=== PATIENT | male | born 1945 | race Caucasian/White ===

== ENCOUNTER 2018-02-01 17:54 | Inpatient (IN) | payer OTHER ==
[~2018-02-01] VITALS: Ht 172.7 cm; Wt 78.0 kg
--- NOTE | ~2018-02-01 | CATHLAB ---
[facility] [address] [place] [address] INVASIVE PROCEDURE REPORT Name: IRMA BURNETTE Room #: 205-P [facility]#: [id number] Admission: 02/01/18 Attend Phys: Chuck Espino, Discharge: Date of : 43 Date of Service: 02/02/18 1153 Report #: [id number] THIS REPORT FOR: //name// APPROVED REPORT Study performed: 02/02/2018 09:31:59 Patient Details Patient Status: Out-Patient Room #: The patient is a 72 year-old male Event Personnel Malcolm Moreland Direct Care Specialist, Eve Rios, Bruna Dillard RTR, Caity Riggs Wes dye automation operator Performed Left Heart Cath w/or w/o Coronaries [id number] [facility] Indication Non-STEMI (>24 hrs to = 48 hrs), Chest pain Procedure Narrative The Right Groin^ was infiltrated with 1% Lidocaine subcutaneous anesthesia. A PINNACLE 6FR Sheath #[id number] sheath was inserted into the RFA^. Coronary angiography was performed using coronary diagnostic catheters. The right coronary system was accessed and visualized with a JR4 catheter. The left coronary system was accessed and visualized with a JL4 catheter. The left ventricle was accessed and visualized with a PIGTAIL catheter. Left ventricular/Aortic Valve gradient assessed via catheter pullback. Hemostasis was obtained with manual pressure following sheath removal without any complications. The patient tolerated the procedure well and there were no complications associated with the procedure. There was no hematoma. Intraoperative Conscious Sedation Sedation start time: 10.04 Case end Time: 10.29 Versed 2 mg Fluoro Time: 1.31 minutes Dose: DAP 54611.20 cGycm2 346 mGy Contrast Type and Amount: Omnipaque 65 ml Coronary Angiography [facility] [employer] [address] INVASIVE PROCEDURE REPORT Name: IRMA BURNETTE Room #: 205-P [facility] IN ..#: [id number] Admission: 02/01/18 Attend Phys: Chuck Espino, Discharge: Date of : 43 Date of Service: 02/02/18 1153 Report #: [id number] The patient's coronary anatomy is right dominant. Diagnostic Cath Left Main Mild plaquing LAD Long, tubular 50% proximal LAD stenosis with a discreet 85% stenosis at first septal perforating branch. Mild distal LAD plaquing Diagonal 1 Several small diffusely diseased diagonal branches Circumflex Large but non-dominant OM1 75% fairly long, proximal OM1 branch stenosis OM2 65% mid OM2 stenosis OM3 90% distal circumflex stenosis before origin of OM3. OM3 very small, mild plaquing Right Coronary 50-60% proximal RCA stenosis. 75% mid RCA stenosis R PDA Mild plaquing RPLV Occluded proximally Left Ventriculography The left ventricle is normal in size with normal contractility. The left ventricular ejection fraction is estimated to be 55-60%. Left ventricular wall motion abnormalities are present. There is no1+ mitral insufficiency. Hypokinesis involving the base of the inferior wall Hemodynamics The aortic pressure is 164/64 mmHg with a mean of 102 mmHg. The left ventricular pressure is 177/2 mmHg with a mean of mmHg. The left ventricular end diastolic pressure is 20 mmHg. Conclusion 1. Mild left ventricular dysfunction with hypokinesis involving the base of the inferior wall. EF 55-60% 2. Mild left main plaquing 3. Severe multivessel coronary artery disease Recommendations Cardiac Rehabilitation Referral Aggressive Medical Therapy CABG Medications Administered ARB (any) Aspirin (any) [address] [address] INVASIVE PROCEDURE REPORT Name: IRMA BURNETTE Room #: 205-P [facility] IN .R.#: [id number] Admission: 02/01/18 Attend Phys: Chuck Espino, Discharge: Date of : 43 Date of Service: 02/02/18 1153 Report #: [id number] Beta J Luis (any) Statin (any) Contraindicated: allergy <ELECTRONICALLY SIGNED> By: Malcolm Moreland MD, [facility] 02/02/18 1153 115 1153 Malcolm Moreland MD, FACC /INF
--- NOTE | ~2018-02-01 | EKG ---
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 <ELECTRONICALLY SIGNED> By: Tiago Shi MD 02/02/18811 0 0 Tiago Shi MD /EPI
--- NOTE | ~2018-02-01 | 2DMMODE ---
[facility] [address] [place] [address] 2 D/M-MODE ECHOCARDIOGRAM Name: VASILEIRMA Zaire Room #: 205-P [facility] IN ..#: [id number] Admission: 02/01/18 Attend Phys: Chuck Espino, Discharge: Date of : 43 Date of Service: 02/02/18 1040 Report #: [id number] THIS REPORT FOR: //name// APPROVED REPORT Study performed: 02/02/2018 08:02:43 EXAM: Comprehensive 2D, Doppler, and color-flow Echocardiogram Patient Location: Echo lab Room #: [facility] Status: routine BSA: 1.94 HR: 53 bpm BP: 144/59 mmHg Rhythm: NSR/PVCs Other Information Study Quality: Good Indications Diabetes Dyspnea Chemo Chest Pain Hypertension/HDD Echo Enhancing Agent Indication: Rule out Shunt Agent(s) / Amount(s) Used: Agitated Saline 7 cc 2D Dimensions RVDd: 30.18 mm LVEF(%): 88.07 (>50%) IVSd: 12.31 (7-11mm) LVOT Diam: 22.44 (18-24mm) LVDd: 42.06 mm PWd: 12.06 (7-11mm) Ascending Ao: 33.12 (22-36mm) LVDs: 17.77 (25-40mm) Aortic Root: 30.44 mm IVC: 13.00 mm Valera's LVEF: 88.07 % Volumes Left Atrial Volume (Systole) Single Plane 4CH: 47.59 mL Single Plane 2CH: 50.76 mL LA ESV Index: 28.00 mL/m2 Aortic Valve [facility] [address] [place] [address] 2 D/M-MODE ECHOCARDIOGRAM Name: IRMA BURNETTE Room #: 205-P [facility]#: [id number] Admission: 02/01/18 Attend Phys: Chuck Espino, Discharge: Date of : 43 Date of Service: 02/02/18 1040 Report #: [id number] AoV Peak Kevin.: 1.53 m/s AO Peak Gr.: 9.31 mmHg LVOT Max P.98 mmHg LVOT Max V: 1.22 m/s MARK Vmax: 3.17 cm2 Mitral Valve E/A Ratio: 0.8 MV Decel. Time: 255.90 ms MV E Max Kevin.: 0.76 m/s MV A Kevin.: 0.90 m/s MV PHT: 74.21 ms IVRT: 92.27 ms Pulmonary Valve PV Peak Kevin.: 1.38 m/s PV Peak Gr.: 7.60 mmHg Pulmonary Vein P Vein S: 0.54 m/s P Vein A: 0.34 m/s P Vein D: 0.21 m/s P Vein A Dur.: 110.7 msec P Vein S/D Ratio: 2.57 Tricuspid Valve RAP Estimate: 5.00 mmHg Left Ventricle The left ventricle is normal size. Mild concentric left ventricular hypertrophy. Probable small, restictive membranous VSD The left ventricular systolic function is normal. Hypokinesis involving base of inferior wall LVEF is 60-65%. Mild diastolic dysfunction is present (impaired relaxation pattern). Right Ventricle The right ventricle is normal size. The right ventricular systolic function is normal. Atria The left atrium size is normal. No shunting by contrast bubble injection The right atrium size is normal. Aortic Valve The aortic valve is mildly calcified, trileaflet. Trace to mild aortic regurgitation. There is no aortic valvular stenosis. Mitral Valve The mitral valve is normal in structure. Mild to at most moderate mitral regurgitation. No evidence of mitral valve [facility] [address] [place] [address] 2 D/M-MODE ECHOCARDIOGRAM Name: IRMA BURNETTE Room #: 205-P [facility] IN [facility]#: [id number] Admission: 02/01/18 Attend Phys: Chuck Espino, Discharge: Date of : 43 Date of Service: 02/02/18 1040 Report #: [id number] stenosis. Tricuspid Valve The tricuspid valve is normal in structure. Trace tricuspid regurgitation. Unable to assess PA pressure. Pulmonic Valve The pulmonary valve is normal in structure. There is no pulmonic valvular regurgitation. Great Vessels The aortic root is normal in size. The ascending aorta is normal in size. IVC is normal in size and collapses >50% with inspiration. Pericardium There is no pericardial effusion. <Conclusion> The left ventricular systolic function is normal. Hypokinesis involving base of inferior wall LVEF is 60-65%. Mild LVH Probable small, restictive membranous VSD Mild diastolic dysfunction is present (impaired relaxation pattern). The aortic valve is mildly calcified, trileaflet, no stenosis. Trace to mild aortic regurgitation. The mitral valve is normal in structure. Mild to at most moderate mitral regurgitation. Pulmonary artery pressure could not be reliably ascertained There is no pericardial effusion. <ELECTRONICALLY SIGNED> By: Malcolm Moreland MD, FACC 02/02/18 1040 1040 1040 Malcolm Moreland MD, FACC /INF
--- NOTE | ~2018-02-01 | EKG ---
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
--- NOTE | ~2018-02-01 | EKG ---
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1945 Requested By: Arlene Zamora Order Number: [id number] MD: Malcolm Moreland Measurements Intervals [place] Rate: 87 P: 36 [place]: 176 QRS: -39 QRSD: 93 T: 95 QT: 343 QTc: 413 Interpretive Statements Sinus rhythm Left anterior fascicular block Abnormal R-wave progression, early transition Nonspecific T abnormalities, lateral leads Borderline ST elevation, consider pericarditis Compared to ECG 02/03/2018 06:20:56 Early R-wave progression is now present Electronically Signed On 02-07-2018 9:14:45 CDT by Malcolm Moreland [email or web address] <ELECTRONICALLY SIGNED> By: Malcolm Moreland MD, [facility] 02/07/18 0914 Malcolm Moreland MD, [facility] /EPI
--- NOTE | ~2018-02-01 | EKG ---
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1945 Requested By: Arlene Zamora Order Number: [id number] MD: Malcolm Moreland Measurements Intervals [place] Rate: 73 P: 32 [place]: 154 QRS: -14 QRSD: 91 T: 89 QT: 361 QTc: 398 Interpretive Statements Sinus rhythm Atrial premature complexes Nonspecific ST and T wave abnormality Compared to ECG 02/02/2018 06:01:56 No significant changes Electronically Signed On 02-03-2018 17:22:59 CDT by Malcolm Moreland [email or web address] <ELECTRONICALLY SIGNED> By: Malcolm Moreland MD, [facility] 02/03/18 1722 9 9 Malcolm Moreland MD, [facility] /EPI
--- NOTE | ~2018-02-01 | HC ---
[facility] [place] [address] CONSULTATION Name: IRMA BURNETTE Room #: 205-P [facility] IN .R.#: [id number] Admission: 02/01/18 Attend Phys: Chuck Espino MD Discharge: Date of : 43 Report #: [id number] THIS REPORT FOR: //name// CC: Chuck Glass DATE OF SERVICE: 02/01/2018 REASON FOR CONSULTATION: Chest pain. HISTORY OF PRESENT ILLNESS: The patient is a 72-year-old gentleman with history of hypertension and long-standing diabetes. He has a history of dyslipidemia. He has been intolerant to multiple different statin medications. Over the past month, he has had intermittent upper chest tightness. He thought that this was probably related to cervical spine fusion that he had a month ago. Today, however, he had a severe episode of the same chest tightness, radiating to both arms and into his jaw. Pain lasted for about 10-15 minutes. He works nights and went home to go to bed and was awakened by the same pain. Pain occurred throughout the day and he presented to the Emergency Department, where he was severely hypertensive. He was given aspirin and nitroglycerin and his pain resolved. His presenting EKG demonstrated LVH with repolarization abnormality, similar to an EKG in 2010. He is currently pain-free. He denies heart failure symptoms including orthopnea, paroxysmal nocturnal dyspnea or lower extremity edema. No history of palpitations, near syncope or syncope. HE HAS BEEN INTOLERANT TO NUMEROUS DIFFERENT STATIN MEDICINES. He thinks that he has tried them all. MEDICATIONS: Include Cozaar 100 mg daily, glipizide 10 mg twice daily, metformin 1000 mg twice daily and fish oil 4 grams daily. PAST MEDICAL HISTORY: His past history and medical records have been reviewed and include a history of left nephrectomy for benign tumor, C4-C5 fusion, eye surgery following a traumatic injury, several prior herniorrhaphies, hypertension, diabetes for the past 20 years and dyslipidemia. 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 He is a former smoker, he quit 7 years ago. . FAMILY HISTORY: Unremarkable for premature coronary disease. REVIEW OF SYSTEMS: All systems negative, except as that noted above. PHYSICAL EXAMINATION: GENERAL: He is a pleasant gentleman, in no distress. [address] [address] CONSULTATION Name: IRMA BURNETTE Room #: [facility] IN M.R.#: [id number] Admission: 02/01/18 Attend Phys: Chuck Espino MD Discharge: Date of : 43 Report #: [id number] VITAL SIGNS: Blood pressure is 150/69, heart rate is 69 and regular. He is afebrile, 5 feet 8 inches tall, 170 pounds. HEENT: There are neither xanthelasma, subcutaneous xanthomata, oral mucosal or digital cyanosis or kyphoscoliosis present. CHEST: Clear to auscultation and percussion. CARDIAC EXAMINATION: Regular rate and rhythm, with normal S1, S2. No murmurs or rubs. ABDOMEN: Soft and nontender. EXTREMITIES: Without cyanosis, clubbing or edema. Radial pulses are 2+. NEUROLOGIC: He is alert with a nonfocal exam. LABORATORY DATA: Sodium is 138, potassium 3.8, creatinine 1.5 and glucose 208. Troponin 0.41. White count 5.7, hemoglobin 14, hematocrit 42 and platelet count 208,000. Chest x-ray is normal. EKG is detailed above. IMPRESSION: 1. Chest pain consistent with unstable angina versus acute coronary syndrome. 2. Hypertension. 3. Dyslipidemia. 4. Diabetes. 5. Chronic kidney disease; solitary kidney following left nephrectomy. 6. Prior tobacco dependency. RECOMMENDATIONS: 1. Therapy with aspirin, nitrates and beta blockade. 2. Coronary angiography. The angiographic procedure was discussed in detail including its associated risks. After a thorough discussion of the procedure, its risks and alternatives and after answering his questions in detail, he is agreeable to proceeding. Thank you for asking me to participate in the patient's care. <ELECTRONICALLY SIGNED> By: Malcolm Moreland MD, [facility] 02/03/18 1534 34 29 Malcolm Moreland MD, FAC /nt
--- NOTE | ~2018-02-01 | EKG ---
[address] [address] ELECTROCARDIOGRAM REPORT Name: VASILEIRMA Tai Room #: 247-P ADM IN M.R.#: [id number] Admission: 02/01/18 Attend Phys: Chuck Espino MD Discharge: Date of : 43 Report #: [id number] THIS REPORT FOR: //name// [facility] Test Date: 2018-02-06 Test Time: 17:43:25 Pat Name: IRMA BURNETTE Department: Room: 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: jlambjesusita : 1945 Requested By: Arlene Zamora Order Number: [id number] MD: Malcolm Moreland Measurements Intervals [place] Rate: 66 P: 13 [place]: 184 QRS: -47 QRSD: 99 T: 75 QT: 390 QTc: 409 Interpretive Statements Sinus rhythm Leftward axis ST elevation, consider postoperative pericarditis Compared to ECG 02/03/2018 06:20:56 Atrial premature complex(es) no longer present repolarization abnormality is now present Electronically Signed On 02-07-2018 9:08:19 CDT by Malcolm Moreland [email or web address] <ELECTRONICALLY SIGNED> By: Malcolm Moreland MD, [facility] 02/07/18 0908 1743 1743 Malcolm Moreland MD, [facility] /EPI
--- NOTE | ~2018-02-01 | O ---
[facility] [place] [address] OPERATIVE REPORT Name: IRMA BURNETTE Room #: 247-P ADM IN M.R.#: [id number] Admission: 02/01/18 Attend Phys: Chuck Espino MD Discharge: Date of : 43 Report #: [id number] THIS REPORT FOR: //name// CC: ALVAREZ Glass DATE OF SERVICE: 02/06/2018 PREOPERATIVE DIAGNOSES: 1. Coronary artery disease. 2. Non-ST segment elevation myocardial infarction. FINAL DIAGNOSES: 1. Coronary artery disease. 2. Non-ST segment elevation myocardial infarction. OPERATIVE PROCEDURE PERFORMED: Coronary artery bypass grafting x 5 with left internal mammary artery to the LAD, a left internal mammary artery Y graft to diagonal vessel, saphenous vein graft to PDA, and saphenous vein graft sequence to OM1 and OM2. SURGEON: Olivier Rosenthal MD ASSISTANTS: FELIPE Pratt and FELIPE Trejo ANESTHESIA: General. OPERATIVE INDICATIONS: The patient is a 72-year-old male who has presented to the hospital with evidence of non-ST segment elevation GA. Maximum troponin was 7. His evaluation included echocardiography and left heart catheterization demonstrated important multivessel coronary artery disease in this diabetic, hypertensive and hyperlipidemic individual. The patient had a stable post-GA course. He was brought to the operating room now for coronary bypass grafting. OPERATIVE SUMMARY: The patient was brought to the operating room, placed on the OR table in supine position. After anesthesia was induced via the general endotracheal route, monitoring lines have been positioned, the patient was prepped and draped in sterile fashion with chlorhexidine. A median sternotomy incision was made and the left internal mammary artery was harvested in standard fashion. Concomitantly, saphenous vein was harvested from left lower extremity using endoscopic techniques. I opened the pericardium, systemically anticoagulated the patient with heparin. Cannulae were placed in ascending aorta and the right atrium. Antegrade cardioplegic cannula was positioned and after cardiopulmonary bypass was begun, under low flow conditions, the aorta was cross clamped. The heart was arrested with approximately 1 liter of cold [facility] [address] [place] [address] OPERATIVE REPORT Name: IRMA BURNETTE Room #: 247-P [facility] IN ..#: [id number] Admission: 02/01/18 Attend Phys: Chuck Espino MD Discharge: Date of : 43 Report #: [id number] antegrade cardioplegia, followed by 500 mL cold retrograde cardioplegia. This was augmented with topical ice slush. Diastolic arrest was achieved and maintained throughout this operation with intermittent doses of cold antegrade and retrograde cardioplegia as well as cardioplegia given down grafts and topical ice slush. We first opened up the second obtuse marginal vessel which was about a 1.9 mm vessel. Distal anastomosis was carried out in end-to-side fashion with 7-0 Prolene. We then constructed a [id number] anastomosis to the first obtuse marginal vessel. This vessel was submuscular and significant dissection was required. Next, a proximal anastomosis was fashioned to the ascending aorta with 6-0 Prolene after 4.8 punch aortotomy was created. Next, we opened up the PDA about a 1.8 mm vessel. Distal anastomosis was carried out in end-to-side fashion with 7-0 Prolene utilizing reverse saphenous vein graft. The vein graft was brought around to the ascending aorta in a proximal fashion with 6-0 Prolene after 4.8 punch aortotomy was created. Next, the left internal mammary artery was brought onto the field. The mammary artery was of good size and had good flow. We first dissected the left internal mammary artery, found a soft spot. It was intramyocardial as well. The diagonal vessel appeared to be large enough for grafting. We opened the diagonal vessel first. It was about 1.5 mm in size. Distal anastomosis was carried out in end-to-side fashion with 7-0 Prolene utilizing the left internal mammary artery. We then cut the internal mammary artery about 2 cm back. We reprepared the in situ mammary for anastomosis to the LAD and performed this anastomosis with 7-0 Prolene after arteriotomy was made. Next, the pedicle was tacked to the epicardium with 6-0 Prolene. Lastly anastomosis between the AMANDA segment to the diagonal and the in situ AMANDA segment was performed utilizing 7-0 Prolene in an end-to-side fashion. Once this was completed, warm cardioplegia was given both retrograde and antegrade. Care was taken to deair the ascending aorta and under low flow conditions aortic crossclamp was released to begin the period of reperfusion. The patient was rewarmed to 37 degree centigrade, 3 successive doses of calcium and single dose of magnesium were given over 3-5 minute intervals. Atrial and ventricular pacing wires were placed. The patient was initially AV sequentially paced. After a suitable period of reperfusion, the lungs were reinflated. The patient was weaned from cardiopulmonary bypass without inotropic support. Protamine was given to reverse the heparin, decannulation was effected. Once satisfactory hemostasis was achieved, we placed two 32-Thai chest tube in anterior mediastinum and 24 Deepak drain in left pleural space. They were all brought through separate stab incisions. The sternum was closed with #7 wire. The fascia, subcutaneous and skin were closed in multiple layers with absorbable suture. The procedure completed. The patient was taken to the ICU in [facility] [address] [place] [address] OPERATIVE REPORT Name: IRMA BURNETTE Room #: 247-P [facility] IN ..#: [id number] Admission: 02/01/18 Attend Phys: Chuck Espino MD Discharge: Date of : 43 Report #: [id number] condition. Cardiopulmonary bypass time 174 minutes. Cross clamp time 153 minutes. By: 1620 1821 /nt
--- NOTE | ~2018-02-01 | EKG ---
[address] [address] ELECTROCARDIOGRAM REPORT Name: VASILEIRMA Zaire Room #: 205-P ADM IN M.R.#: [id number] Admission: 02/01/18 Attend Phys: Chuck Espino MD Discharge: Date of : 43 Report #: [id number] THIS REPORT FOR: //name// 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
[~2018-02-01 17:54] MED LIST: ASPIRIN; COZAAR; FISH OIL 1,0001 EAC6; GLUCOTROL5 MG; METFORMIN; MULTIVITAMINS; TRAMADOL 50 MG50 MG PO
[2018-02-01 18:00] VITALS: BP 225/115
[2018-02-01 18:16] LABS: HEMATOCRIT 42.3 % (42.0-52.0); HEMOGLOBIN 14.7 gm/dL (14.0-18.0); MCH 31.8 pg (26.0-34.0); MCHC 34.8 g/dL (28.0-37.0); MCV 91.3 fL (80.0-100.0); RBC 4.63 mil/uL (4.50-6.00); RDW 13.2 % (10.5-14.5); WBC 5.7 thou/uL (4.0-11.0)
[2018-02-01] MEDS ORDERED: GLIPIZIDE 10 MG10 MG PO (18:17)
[2018-02-01] MEDS ORDERED: COZAAR 50 MG TA50 M2 PO (18:18)
[2018-02-01] MEDS ORDERED: METFORMIN HCL500 MG PO (18:18)
[2018-02-01 18:25] LABS: CALCIUM 10.1 mg/dL (8.5-10.1); CREATININE 1.5 mg/dL (0.7-1.3); POTASSIUM 3.8 mmol/L (3.5-5.1)
[2018-02-01 18:34] LABS: ALBUMIN 4.3 g/dL (3.4-5.0); TOTAL BILIRUBIN 0.3 mg/dL (<0.1-1.0); TROPONIN-I 0.41 ng/mL (<0.06)
[2018-02-01 19:33] VITALS: BP 106/54
[2018-02-01 19:53] VITALS: BP 152/69
[2018-02-01 20:48] LABS: CHOLESTEROL 216 mg/dL (<200); HDL CHOLESTEROL 36 mg/dL (>40); LDL CHOLESTEROL 113 mg/dL (<100); TRIGLYCERIDE 336 mg/dL (<150); VLDL 67 mg/dL (<40)
[2018-02-01 20:50] LABS: SERUM ASSESSMENT Clear
[2018-02-01 20:54] VITALS: BP 153/80
[2018-02-01 23:19] VITALS: BP 146/59
[2018-02-02] VITALS (14 sets, daily range): BP systolic 133–175; BP diastolic 57–93
[2018-02-02 14:10] LABS: GLYCOHEMOGLOBIN (HGB A1C) 7.9 % (4.8-5.6)
[2018-02-02 16:35] LABS: URINE BILIRUBIN NEGATIVE (Negative); URINE BLOOD NEGATIVE (Negative); URINE CLARITY CLEAR; URINE COLOR YELLOW; URINE GLUCOSE-RANDOM* NEGATIVE (Negative); URINE KETONES NEGATIVE (Negative); URINE LEUKOCYTES-REFLEX NEGATIVE (Negative); URINE NITRITE-REFLEX NEGATIVE (Negative); URINE PROTEIN (DIPSTICK) NEGATIVE (Negative); URINE SPECIFIC GRAVITY <= 1.005 (1.005-1.035); URINE UROBILINOGEN 0.2 E.U./dl (0.2-1.0)
[2018-02-03 03:26] VITALS: BP 127/52
[2018-02-03 04:49] LABS: APTT 28.2 Seconds (24.5-32.8); PROTIME 10.2 Seconds (9.3-11.4)
[2018-02-03 04:53] LABS: CALCIUM 9.2 mg/dL (8.5-10.1); CREATININE 1.4 mg/dL (0.7-1.3); POTASSIUM 3.8 mmol/L (3.5-5.1)
[2018-02-03 08:00] VITALS: BP 131/71
[2018-02-03 13:29] VITALS: BP 143/68
[2018-02-03 15:20] VITALS: BP 128/66
[2018-02-03 19:31] VITALS: BP 138/73
[2018-02-04 04:40] VITALS: BP 133/69
[2018-02-04 04:55] LABS: CALCIUM 9.3 mg/dL (8.5-10.1); CREATININE 1.5 mg/dL (0.7-1.3); POTASSIUM 3.9 mmol/L (3.5-5.1)
[2018-02-04 08:34] VITALS: BP 139/70
[2018-02-04 11:13] VITALS: BP 129/65
[2018-02-04 15:27] VITALS: BP 126/67
[2018-02-04 19:20] VITALS: BP 131/69
[2018-02-04 19:21] VITALS: BP 125/81
[2018-02-05] VITALS (7 sets, daily range): BP systolic 113–149; BP diastolic 69–86
[2018-02-06 04:24] VITALS: BP 115/67
[2018-02-06 05:14] LABS: ALBUMIN 3.3 g/dL (3.4-5.0); CALCIUM 9.5 mg/dL (8.5-10.1); CREATININE 1.7 mg/dL (0.7-1.3); MAGNESIUM 1.7 mg/dL (1.8-2.4); POTASSIUM 4.2 mmol/L (3.5-5.1); TOTAL BILIRUBIN 0.5 mg/dL (<0.1-1.0); TOTAL PROTEIN 6.7 g/dL (6.4-8.2)
[2018-02-06 05:19] LABS: HEMATOCRIT 35.8 % (42.0-52.0); HEMOGLOBIN 12.4 gm/dL (14.0-18.0); MCH 31.7 pg (26.0-34.0); MCHC 34.6 g/dL (28.0-37.0); MCV 91.7 fL (80.0-100.0); RBC 3.91 mil/uL (4.50-6.00); RDW 12.9 % (10.5-14.5); WBC 6.6 thou/uL (4.0-11.0)
[2018-02-06 07:35] VITALS: BP 140/74
[2018-02-06 15:34] LABS: MCHC 34.8 g/dL (28.0-37.0); MCV 92.1 fL (80.0-100.0); RBC 2.48 mil/uL (4.50-6.00); RDW 12.5 % (10.5-14.5)
[2018-02-06 15:37] LABS: HEMATOCRIT 22.8 % (42.0-52.0)
[2018-02-06 15:38] LABS: HEMOGLOBIN 7.9 gm/dL (14.0-18.0)
[2018-02-06 15:52] LABS: INR 1.4
[2018-02-06 15:53] LABS: FIBRINOGEN 160.9 mg/dL (210-360)
[2018-02-06 16:22] LABS: POC BE -3 mmol/L (-2.0 to +3.0); POC CA IONIZED 7.8 mg/dL (4.5-5.3); POC GLUCOSE 147 mg/dL (70-99); POC HCO3 22.5 mmol/L (22.0-26.0); POC HEMOGLOBIN 6.8 g/dL (14.0-18.0); POC POTASSIUM 4.1 mmol/L (3.5-5.1); POC SODIUM 138 mmol/L (136-145); POC pCO2 40.5 mmHg (35.0-45.0); POC pH 7.353 (7.360-7.450)
[2018-02-06 16:22] LABS: POC BE 2 mmol/L (-2.0 to +3.0); POC GLUCOSE 109 mg/dL (70-99); POC HCO3 26.9 mmol/L (22.0-26.0); POC HEMOGLOBIN 8.5 g/dL (14.0-18.0); POC POTASSIUM 4.8 mmol/L (3.5-5.1); POC SODIUM 137 mmol/L (136-145); POC pCO2 44.1 mmHg (35.0-45.0); POC pH 7.393 (7.360-7.450)
[2018-02-06 16:22] LABS: POC BE 2 mmol/L (-2.0 to +3.0); POC CA IONIZED 4.2 mg/dL (4.5-5.3); POC GLUCOSE 101 mg/dL (70-99); POC HCO3 24.7 mmol/L (22.0-26.0); POC HEMOGLOBIN 8.5 g/dL (14.0-18.0); POC POTASSIUM 4.9 mmol/L (3.5-5.1); POC SODIUM 139 mmol/L (136-145); POC pCO2 31.4 mmHg (35.0-45.0); POC pH 7.505 (7.360-7.450)
[2018-02-06 16:22] LABS: POC BE 0 mmol/L (-2.0 to +3.0); POC GLUCOSE 158 mg/dL (70-99); POC HCO3 25.6 mmol/L (22.0-26.0); POC HEMOGLOBIN 6.8 g/dL (14.0-18.0); POC POTASSIUM 4.9 mmol/L (3.5-5.1); POC SODIUM 137 mmol/L (136-145); POC pCO2 45.1 mmHg (35.0-45.0); POC pH 7.361 (7.360-7.450)
[2018-02-06 16:22] LABS: POC BE -2 mmol/L (-2.0 to +3.0); POC CA IONIZED 4.8 mg/dL (4.5-5.3); POC GLUCOSE 141 mg/dL (70-99); POC HCO3 24.5 mmol/L (22.0-26.0); POC HEMOGLOBIN 10.2 g/dL (14.0-18.0); POC POTASSIUM 4.3 mmol/L (3.5-5.1); POC SODIUM 138 mmol/L (136-145); POC pCO2 50.2 mmHg (35.0-45.0); POC pH 7.296 (7.360-7.450)
[2018-02-06 16:22] LABS: POC BE 0 mmol/L (-2.0 to +3.0); POC CA IONIZED 4.4 mg/dL (4.5-5.3); POC GLUCOSE 143 mg/dL (70-99); POC HCO3 24.6 mmol/L (22.0-26.0); POC HEMOGLOBIN 8.2 g/dL (14.0-18.0); POC POTASSIUM 4.6 mmol/L (3.5-5.1); POC SODIUM 140 mmol/L (136-145); POC pCO2 39.2 mmHg (35.0-45.0); POC pH 7.406 (7.360-7.450)
[2018-02-06 16:22] LABS: POC BE 0 mmol/L (-2.0 to +3.0); POC CA IONIZED 4.5 mg/dL (4.5-5.3); POC GLUCOSE 173 mg/dL (70-99); POC HCO3 25.1 mmol/L (22.0-26.0); POC HEMOGLOBIN 7.8 g/dL (14.0-18.0); POC SODIUM 140 mmol/L (136-145); POC pCO2 43.7 mmHg (35.0-45.0); POC pH 7.368 (7.360-7.450)
[2018-02-06 16:22] LABS: POC BE 0 mmol/L (-2.0 to +3.0); POC CA IONIZED 4.6 mg/dL (4.5-5.3); POC GLUCOSE 175 mg/dL (70-99); POC HCO3 24.5 mmol/L (22.0-26.0); POC HEMOGLOBIN 10.5 g/dL (14.0-18.0); POC POTASSIUM 4.6 mmol/L (3.5-5.1); POC SODIUM 138 mmol/L (136-145); POC pCO2 35.5 mmHg (35.0-45.0); POC pH 7.447 (7.360-7.450)
[2018-02-06 16:22] LABS: POC BE 2 mmol/L (-2.0 to +3.0); POC CA IONIZED 4.3 mg/dL (4.5-5.3); POC GLUCOSE 119 mg/dL (70-99); POC HCO3 25.9 mmol/L (22.0-26.0); POC HEMOGLOBIN 8.2 g/dL (14.0-18.0); POC POTASSIUM 4.9 mmol/L (3.5-5.1); POC SODIUM 140 mmol/L (136-145); POC pCO2 36.9 mmHg (35.0-45.0); POC pH 7.455 (7.360-7.450)
[2018-02-06 16:22] LABS: POC BE -5 mmol/L (-2.0 to +3.0); POC CA IONIZED 6.7 mg/dL (4.5-5.3); POC GLUCOSE 121 mg/dL (70-99); POC HCO3 20.8 mmol/L (22.0-26.0); POC HEMOGLOBIN 8.8 g/dL (14.0-18.0); POC POTASSIUM 4.3 mmol/L (3.5-5.1); POC SODIUM 140 mmol/L (136-145); POC pCO2 36.9 mmHg (35.0-45.0); POC pH 7.359 (7.360-7.450)
[2018-02-06 16:22] LABS: POC BE -3 mmol/L (-2.0 to +3.0); POC CA IONIZED 4.3 mg/dL (4.5-5.3); POC GLUCOSE 107 mg/dL (70-99); POC HCO3 23.3 mmol/L (22.0-26.0); POC HEMOGLOBIN 8.8 g/dL (14.0-18.0); POC POTASSIUM 4.7 mmol/L (3.5-5.1); POC SODIUM 139 mmol/L (136-145); POC pCO2 43.6 mmHg (35.0-45.0); POC pH 7.336 (7.360-7.450)
[2018-02-06 16:50] LABS: HEMATOCRIT 30.7 % (42.0-52.0); MCH 31.6 pg (26.0-34.0); MCHC 34.5 g/dL (28.0-37.0); MCV 91.8 fL (80.0-100.0); RBC 3.34 mil/uL (4.50-6.00); RDW 12.7 % (10.5-14.5); WBC 11.5 thou/uL (4.0-11.0)
[2018-02-06 16:50] LABS: BE(vivo) -5.3 mmol/L (-2 to +3); HCO3 20.7 mmol/L (22.0-26.0); PCO2 41.9 mmHg (35.0-45.0); PO2 88.9 mmHg (80.0-100.0); sO2 96.1 % (92.0-98.0)
[2018-02-06 16:51] LABS: pH 7.311 (7.360-7.450)
[2018-02-06 16:54] LABS: HEMOGLOBIN 10.6 gm/dL (14.0-18.0)
[2018-02-06 16:59] LABS: CALCIUM 11.1 mg/dL (8.5-10.1); CREATININE 1.5 mg/dL (0.7-1.3); POTASSIUM 4.4 mmol/L (3.5-5.1)
[2018-02-06 17:00] LABS: MAGNESIUM 2.9 mg/dL (1.8-2.4)
[2018-02-06 17:04] LABS: APTT 26.8 Seconds (24.5-32.8); INR 1.2; PROTIME 11.8 Seconds (9.3-11.4)
[2018-02-06 20:40] LABS: HEMATOCRIT 31.7 % (42.0-52.0)
[2018-02-06 23:32] LABS: BE(vivo) -3.9 mmol/L (-2 to +3); HCO3 21.4 mmol/L (22.0-26.0); PO2 87.8 mmHg (80.0-100.0); pH 7.347 (7.360-7.450); sO2 96.3 % (92.0-98.0)
[2018-02-07] VITALS (15 sets, daily range): BP systolic 102–137; BP diastolic 50–73
[2018-02-07 00:18] LABS: HCO3 18.6 mmol/L (22.0-26.0); PCO2 37.9 mmHg (35.0-45.0); PO2 94.6 mmHg (80.0-100.0); sO2 96.7 % (92.0-98.0)
[2018-02-07 00:19] LABS: pH 7.309 (7.360-7.450)
[2018-02-07 05:45] LABS: HEMATOCRIT 29.5 % (42.0-52.0); HEMOGLOBIN 10.2 gm/dL (14.0-18.0); MCH 31.9 pg (26.0-34.0); MCHC 34.6 g/dL (28.0-37.0); MCV 92.2 fL (80.0-100.0); RBC 3.2 mil/uL (4.50-6.00); WBC 9.4 thou/uL (4.0-11.0)
[2018-02-07 06:40] LABS: CALCIUM 9.8 mg/dL (8.5-10.1); CREATININE 1.7 mg/dL (0.7-1.3); MAGNESIUM 2.1 mg/dL (1.8-2.4); POTASSIUM 4.7 mmol/L (3.5-5.1)
[2018-02-07 10:34] LABS: URINE BILIRUBIN NEGATIVE (Negative); URINE BLOOD 3+ (Negative); URINE CLARITY CLOUDY; URINE COLOR YELLOW; URINE GLUCOSE-RANDOM* NEGATIVE (Negative); URINE KETONES 1+ (Negative); URINE LEUKOCYTES NEGATIVE (Negative); URINE NITRITE NEGATIVE (Negative); URINE PROTEIN (DIPSTICK) TRACE (Negative); URINE SPECIFIC GRAVITY >= 1.030 (1.005-1.035); URINE UROBILINOGEN 0.2 E.U./dl (0.2-1.0)
[2018-02-07 10:47] LABS: AMORPHOUS URATES Moderate /LPF (None Seen); CASTS None Seen /LPF (None Seen); SQUAMOUS None Seen /LPF (0-3); URINE WBC 0-5 Rare /HPF (0-5)
[2018-02-07 10:48] LABS: BACTERIA 1-9 Few /HPF (None Seen)
[2018-02-08] VITALS (17 sets, daily range): BP systolic 106–140; BP diastolic 52–114
[2018-02-08 04:42] LABS: ABSOLUTE NEUTROPHILS 7.1 thou/uL (1.4-8.2); BASOPHILS 0.3 % (0.0-2.0); EOSINOPHILS 0.6 % (0.0-3.0); HEMOGLOBIN 9.6 gm/dL (14.0-18.0); LYMPHOCYTES 9.1 % (24.0-44.0); MCH 31.8 pg (26.0-34.0); MCHC 34.4 g/dL (28.0-37.0); MCV 92.5 fL (80.0-100.0); MONOCYTES 8.6 % (1.0-8.0); PLATELET COUNT 142 thou/uL (150-400); POLYS 81.4 % (36.0-66.0); RBC 3.03 mil/uL (4.50-6.00); RDW 13.1 % (10.5-14.5); WBC 8.7 thou/uL (4.0-11.0)
[2018-02-08 04:59] LABS: CALCIUM 9.5 mg/dL (8.5-10.1); CREATININE 1.6 mg/dL (0.7-1.3); MAGNESIUM 1.7 mg/dL (1.8-2.4); POTASSIUM 4.6 mmol/L (3.5-5.1); TOTAL BILIRUBIN 0.7 mg/dL (<0.1-1.0)
[2018-02-09 00:17] VITALS: BP 122/83
[2018-02-09 04:34] LABS: CALCIUM 9.3 mg/dL (8.5-10.1); CREATININE 1.6 mg/dL (0.7-1.3); MAGNESIUM 1.9 mg/dL (1.8-2.4); POTASSIUM 4.4 mmol/L (3.5-5.1)
[2018-02-09 04:35] LABS: HEMATOCRIT 27.1 % (42.0-52.0); HEMOGLOBIN 9.4 gm/dL (14.0-18.0); MCH 32.1 pg (26.0-34.0); MCHC 34.7 g/dL (28.0-37.0); MCV 92.4 fL (80.0-100.0); RBC 2.93 mil/uL (4.50-6.00); RDW 13.1 % (10.5-14.5); WBC 7.8 thou/uL (4.0-11.0)
[2018-02-09 05:18] VITALS: BP 149/82
[2018-02-09 08:18] VITALS: BP 142/58
[2018-02-09 17:28] VITALS: BP 133/62
[2018-02-09 19:53] VITALS: BP 115/53
[2018-02-10 04:33] VITALS: BP 142/77
[2018-02-10 07:14] VITALS: BP 147/76
[2018-02-10 11:03] VITALS: BP 136/73
[2018-02-10 14:55] VITALS: BP 136/73
[2018-02-10 15:54] VITALS: BP 119/51
[2018-02-10 19:55] VITALS: BP 141/64
[2018-02-11 04:36] VITALS: BP 161/74
[2018-02-11 06:51] LABS: HEMATOCRIT 31.7 % (42.0-52.0); HEMOGLOBIN 10.9 gm/dL (14.0-18.0); MCH 31.6 pg (26.0-34.0); MCHC 34.3 g/dL (28.0-37.0); MCV 92.3 fL (80.0-100.0); RBC 3.43 mil/uL (4.50-6.00); RDW 13.2 % (10.5-14.5)
[2018-02-11 07:08] LABS: CREATININE 1.6 mg/dL (0.7-1.3); MAGNESIUM 1.7 mg/dL (1.8-2.4); POTASSIUM 3.7 mmol/L (3.5-5.1)
[2018-02-11 09:03] VITALS: BP 154/69
[2018-02-11 12:35] VITALS: BP 122/57
[2018-02-11 17:06] VITALS: BP 128/53
[2018-02-11 19:16] VITALS: BP 124/60
[2018-02-12 03:55] VITALS: BP 142/72
[2018-02-12 07:28] LABS: HEMATOCRIT 28.3 % (42.0-52.0); HEMOGLOBIN 9.7 gm/dL (14.0-18.0); MCH 31.4 pg (26.0-34.0); MCHC 34.2 g/dL (28.0-37.0); MCV 91.9 fL (80.0-100.0); RBC 3.08 mil/uL (4.50-6.00); WBC 8.8 thou/uL (4.0-11.0)
[2018-02-12 07:39] LABS: CALCIUM 8.7 mg/dL (8.5-10.1); CREATININE 1.5 mg/dL (0.7-1.3); MAGNESIUM 1.7 mg/dL (1.8-2.4); POTASSIUM 3.7 mmol/L (3.5-5.1)
[2018-02-12 07:52] VITALS: BP 148/74
[2018-02-12 11:09] VITALS: BP 122/67
[2018-02-12 15:30] VITALS: BP 143/71
[2018-02-12 20:08] VITALS: BP 125/68
[2018-02-13 03:49] LABS: CALCIUM 9.1 mg/dL (8.5-10.1); CREATININE 1.6 mg/dL (0.7-1.3); MAGNESIUM 1.9 mg/dL (1.8-2.4); POTASSIUM 3.7 mmol/L (3.5-5.1)
[2018-02-13 04:05] LABS: HEMATOCRIT 28.7 % (42.0-52.0); HEMOGLOBIN 9.8 gm/dL (14.0-18.0); MCH 31.3 pg (26.0-34.0); MCHC 34.2 g/dL (28.0-37.0); MCV 91.3 fL (80.0-100.0); RBC 3.14 mil/uL (4.50-6.00); RDW 12.8 % (10.5-14.5); WBC 9.2 thou/uL (4.0-11.0)
[2018-02-13 05:11] VITALS: BP 138/80
[2018-02-13 08:14] VITALS: BP 138/72
[2018-02-13 11:30] VITALS: BP 118/70
[2018-02-13] MEDS ORDERED: HYDROCODON-ACE1 EAC7 PO (11:44)
[2018-02-13] MEDS ORDERED: PACERONE 200 M200 M1 PO (11:44)
[2018-02-13] MEDS ORDERED: ASA5UEC PO (11:44)
[2018-02-13] MEDS ORDERED: JANUVIA25 MG PO (11:44)
[2018-02-13] MEDS ORDERED: LIPITOR 20 MG T20 M1 PO (11:46)
[2018-02-13] MEDS ORDERED: VENTOLIN HFA 1818 GM INH (11:50)
[2018-02-13 13:57] VITALS: BP 136/73
[2018-02-13 15:10] VITALS: BP 136/73
== END 2018-02-13 15:24 | disposition home health service (06) | DRG 233 ==
LOC: ER 17:54 → EROBS 19:30 → 2N 19:30 → TBA 02-06 08:27 → ICU 02-06 16:29 → 2N 02-08 15:51
PROVIDERS: Internal Medicine; Nurse Practitioner; Nurse Practitioner Acute Care; Physician Assistant; Thoracic Surgery (Cardiothoracic Vascular Surgery)
PROC: B2111ZZ Fluoroscopy of Multiple Coronary Arteries using Low Osmolar Contrast (ICD-10-PCS; 2018-02-02)
PROC: 4A023N7 Measurement of Cardiac Sampling and Pressure, Left Heart, Percutaneous Approach (ICD-10-PCS; 2018-02-02)
PROC: B2151ZZ Fluoroscopy of Left Heart using Low Osmolar Contrast (ICD-10-PCS; 2018-02-02)
PROC: 4A133B1 Monitoring of Arterial Pressure, Peripheral, Percutaneous Approach (ICD-10-PCS; principal; 2018-02-06)
PROC: 021309W Bypass Coronary Artery, Four or More Arteries from Aorta with Autologous Venous Tissue, Open Approach (ICD-10-PCS; principal; 2018-02-06)
PROC: 03HY32Z Insertion of Monitoring Device into Upper Artery, Percutaneous Approach (ICD-10-PCS; principal; 2018-02-06)
PROC: 06BQ4ZZ Excision of Left Saphenous Vein, Percutaneous Endoscopic Approach (ICD-10-PCS; principal; 2018-02-06)
PROC: 02HQ32Z Insertion of Monitoring Device into Right Pulmonary Artery, Percutaneous Approach (ICD-10-PCS; principal; 2018-02-06)
PROC: 5A1221Z Performance of Cardiac Output, Continuous (ICD-10-PCS; principal; 2018-02-06)
PROC: 02100Z9 Bypass Coronary Artery, One Artery from Left Internal Mammary, Open Approach (ICD-10-PCS; principal; 2018-02-06)
PROC: 4A133J1 Monitoring of Arterial Pulse, Peripheral, Percutaneous Approach (ICD-10-PCS; principal; 2018-02-06)
DX: I21.4 Non-ST elevation (NSTEMI) myocardial infarction (principal); N17.0 Acute kidney failure with tubular necrosis; I50.32 Chronic diastolic (congestive) heart failure; I13.0 Hypertensive heart and chronic kidney disease with heart failure and stage 1 through stage 4 chronic kidney disease, or unspecified chronic kidney disease; D62 Acute posthemorrhagic anemia; I25.110 Atherosclerotic heart disease of native coronary artery with unstable angina pectoris; E78.00 Pure hypercholesterolemia, unspecified; E78.5 Hyperlipidemia, unspecified; E11.42 Type 2 diabetes mellitus with diabetic polyneuropathy; I16.0 Hypertensive urgency; N18.3 Chronic kidney disease, stage 3 (moderate); M19.90 Unspecified osteoarthritis, unspecified site; K21.9 Gastro-esophageal reflux disease without esophagitis; E11.65 Type 2 diabetes mellitus with hyperglycemia; R13.10 Dysphagia, unspecified; D64.9 Anemia, unspecified; E11.22 Type 2 diabetes mellitus with diabetic chronic kidney disease; E87.70 Fluid overload, unspecified; Z87.891 Personal history of nicotine dependence; Z90.5 Acquired absence of kidney; Z82.49 Family history of ischemic heart disease and other diseases of the circulatory system; Z83.3 Family history of diabetes mellitus; Z79.82 Long term (current) use of aspirin; Z79.899 Other long term (current) drug therapy
CPT/HCPCS: 10078; 10081; 10797; 15012; 47000; 47001; 47002; 47297; 50249; 50318; 50409; 50456; 50497; 50662; 50668; 51301; 52131; 52190; 52314; 53327; 53358; 54118; 56524; 56525; 56526; 56527; 56528; 56529; 56531; 56534; 56639; 57093; 62110; 62950; 64029; 65002; 65003; 65020; 65043; 65047; 65120